=== PATIENT | male | born 1965 ===

== ENCOUNTER → 2019-08-03 12:17 | Outpatient (CLI) | payer OTHER, SELFPAY ==
--- NOTE | ~2019-08-03 | XR_ITS ---
XR sternum min 2V DATE: 08/03/2019 12:55 INDICATION: Sternal pain for 2 weeks TECHNIQUE: Oblique and lateral views COMPARISON: None FINDINGS: No sternal fracture or bone destruction is evident. IMPRESSION: No significant abnormality of the sternum is detected Reviewed, dictated and finalized at location B. [facility]
== END ==
PROVIDERS: PCP Family Medicine; Visit Provider Family Medicine
DX: R07.2 Precordial pain (principal)
CPT/HCPCS: 71120